=== PATIENT | female | born 1970 | race Caucasian/White ===

== ENCOUNTER 2021-05-07 18:19 | Outpatient (CLI) | payer OTHER, SELFPAY ==
--- NOTE | ~2021-05-07 | XR_ITS ---
EXAMINATION: XR chest 2V DATE: 05/07/2021 19:01 INDICATION: Chest congestion, malaise and fatigue. TECHNIQUE: PA and lateral views of the chest were obtained. COMPARISON: None FINDINGS: The lungs are clear with no focal airspace opacities, pulmonary edema, pleural effusion or pneumothor ax. The cardiomediastinal silhouette is normal. Mild thoracic spondylosis. IMPRESSION: 1. No acute cardiopulmonary disease. Reviewed, dictated and finalized at location A. EREAU CLERK
--- NOTE | ~2021-05-07 | XR_ITS ---
EXAMINATION: XR sinus min 3V DATE: 05/07/2021 19:02 INDICATION: 2 weeks of congestion and sinus pressure. Malaise and fatigue. TECHNIQUE: AP, submental, Escobar, open-mouth Escobar and lateral views of the paranasal sinuses were obtained. COMPARISON: None. FINDINGS: No fractures identified. Specifically the visualized orozco of the orbits and paranasal sinuses appea r intact. Nasal septum is midline. No nasal bone fracture identified. Paranasal sinuses and mastoid air cells appear well-pneumatized with no evident air-fluid levels. IMPRESSION: 1. Normal study with no evident air-fluid levels within the paranasal sinuses. Reviewed, dictated and finalized at location A. TH WORKER
== END 2021-05-07 18:20 | disposition home or self-care (01) ==
PROVIDERS: PCP Family Medicine; Visit Provider Internal Medicine Infectious Disease
DX: R53.81 Other malaise (principal); R53.83 Other fatigue
CPT/HCPCS: 70220; 71046

== ENCOUNTER 2021-05-08 16:44 | Outpatient (CLI) | payer OTHER, SELFPAY ==
[2021-05-08 17:19] LABS: Basophils Percent Auto 0.2 % (0.2-1.2); Eosinophils Percent Auto 0.7 % (0-4.4); Hematocrit 40.6 % (42.0-52.0); Hemoglobin 13.8 g/dL (14.0-18.0); Immature Granulocyte Absolute 0.01 K/mm3 (0.00-0.031); Immature Granulocyte Percent A 0.2 % (0-0.5); Lymphocytes Absolute Auto 1.77 K/mm3 (0.9-3.2); Lymphocytes Percent Auto 43.6 % (18.3-44.2); Mean Corpuscular Volume 88.3 fl (80-100); Mean Platelet Volume 9.2 fl (7.4-10.4); Monocytes Absolute Auto 0.5 K/mm3 (0.1-0.6); Monocytes Percent Auto 11.1 % (2.6-8.5); Neutrophils Absolute Auto 1.8 K/mm3 (1.3-6.7); Neutrophils Percent Auto 44.2 % (45.5-73.1); Platelet Count Result 222 k/mm3 (150-375); Red Cell Distribution Width 12.4 % (11.5-14.5); White Blood Count 4.1 K/mm3 (4.5-10.0)
[2021-05-08 20:12] LABS: Blood Urea Nitrogen 6 mg/dL (7-20); Carbon Dioxide 23 mmol/L (22-30); Chloride 103 mmol/L (96-107); Potassium 3.7 mmol/L (3.4-5.0); Sodium 139 mmol/L (137-145)
[2021-05-08 20:13] LABS: Aspartate Amino Transferase 32 U/L (17-59); Bilirubin,Total 0.3 mg/dL (0.2-1.3); Calcium 9.6 mg/dL (8.4-10.2); Estimated Glomerular Filt Rate > 60; Glucose 103 mg/dL (65-110)
[2021-05-08 20:14] LABS: Alanine Aminotransferase 46 U/L (4-50); Albumin Level 4.9 g/dL (3.5-5.1); Alkaline Phosphatase 103 U/L (38-126)
== END 2021-05-08 16:45 | disposition home or self-care (01) ==
LOC: ANHLAB 16:46
PROVIDERS: PCP Family Medicine; Visit Provider Internal Medicine Infectious Disease
DX: R09.81 Nasal congestion (principal)
CPT/HCPCS: 36415; 80053; 85025; 87040

== ENCOUNTER → 2021-05-11 02:42 | Outpatient (CLI) | payer OTHER, SELFPAY ==
[2021-05-11 16:36] LABS: SARS-CoV-2 RNA PCR Positive
== END ==
PROVIDERS: PCP Family Medicine; Visit Provider Internal Medicine Infectious Disease
DX: U07.1 COVID-19 (principal); R53.81 Other malaise; R53.83 Other fatigue
CPT/HCPCS: C9803; U0003; U0005

== ENCOUNTER 2023-08-04 12:56 | Outpatient (CLI) | payer OTHER, SELFPAY ==
--- NOTE | ~2023-08-04 | XR_ITS ---
EXAMINATION: XR hand LT min 3V DATE: 08/04/2023 13:08 INDICATION: Left thumb pain. TECHNIQUE: 3 views of left hand were obtained. COMPARISON: None. FINDINGS: Bone alignment is normal. No fracture. There is mild osteoarthritis of first carpometacarpa l joint, first metacarpophalangeal joint, and third distal interphalangeal joint. IMPRESSION: 1. Polyarticular osteoarthritis. Reviewed, dictated and finalized at location A. ORIAL CARTOONIST
== END 2023-08-04 12:57 | disposition home or self-care (01) ==
LOC: ANHBWCIMG 12:58
PROVIDERS: PCP Family Medicine; Visit Provider Orthopaedic Surgery
DX: M19.042 Primary osteoarthritis, left hand (principal)
CPT/HCPCS: 73130